=== PATIENT | male | born 1950 | race Hispanic/Latino ===

== ENCOUNTER 2024-12-24 07:53 | Outpatient (CLI) | payer OTHER | END 2024-12-24 07:54 | disposition home or self-care (01) | LOC: BICMRI 07:53 | PROVIDERS: ATTEND Podiatrist Foot & Ankle Surgery | DX: M72.2 Plantar fascial fibromatosis (principal); D48.19 Other specified neoplasm of uncertain behavior of connective and other soft tissue; M19.071 Primary osteoarthritis, right ankle and foot; M25.871 Other specified joint disorders, right ankle and foot; M79.89 Other specified soft tissue disorders | CPT/HCPCS: 36415; 82565 ==